=== PATIENT | male | born 1975 | race Caucasian/White ===

== ENCOUNTER 2018-08-20 14:13 | Emergency (ER) | payer SELFPAY ==
[~2018-08-20] VITALS: Ht 180.3 cm; Wt 91.2 kg
[2018-08-20 14:17] VITALS: BP 146/84; Ht 180.3 cm; Wt 91.2 kg
[2018-08-20 17:05] LABS: URIC ACID 4.8 mg/dL (3.5-7.2)
[2018-08-20 17:25] LABS: C REACTIVE PROTEIN 19.3 mg/dL (<=0.9)
== END 2018-08-20 18:07 | disposition home or self-care (01) ==
LOC: ED 14:13
PROVIDERS: Emergency Medicine
DX: L03.115 Cellulitis of right lower limb (principal); M10.9 Gout, unspecified
CPT/HCPCS: 36415; J7512